=== PATIENT | male | born 1985 | race Caucasian/White ===

== ENCOUNTER 2018-10-25 19:34 | Day surgery (SDC) | payer MEDICAID ==
[~2018-10-25] VITALS: Ht 185.4 cm; Wt 99.8 kg
[~2018-10-25 19:34] MED LIST: CLIN150C17 PO
[2018-10-25] MEDS ORDERED: LACTATED RINGERS 1,000 ML IV ONE (19:39)
[2018-10-25] MEDS ORDERED: CEFEPIME INJECTION 2,000 MG in WATER (STERILE) FOR INJECTION 20 ML IV ONE (19:45)
[2018-10-25 19:52] LABS: BASOPHILS # (AUTO) 0.1 10^3/uL (0.0-0.1); BASOPHILS % (AUTO) 0 % (0-10); EOSINOPHILS # (AUTO) 0.3 10^3/uL (0.0-0.3); EOSINOPHILS % (AUTO) 2 % (0-10); HEMATOCRIT 43 % (40-54); HEMOGLOBIN 15.1 G/DL (13.3-17.7); LYMPHOCYTES # (AUTO) 2.8 X 10^3 (1.0-4.0); LYMPHOCYTES % (AUTO) 18 % (12-44); MEAN CORPUSCULAR HEMOGLOBIN 32 PG (25-34); MEAN CORPUSCULAR HGB CONC 35 G/DL (32-36); MEAN CORPUSCULAR VOLUME 91 FL (80-99); MEAN PLATELET VOLUME 9.7 FL (7.4-10.4); MONOCYTES # (AUTO) 1.2 X 10^3 (0.0-1.0); MONOCYTES % (AUTO) 8 % (0-12); NEUTROPHILS # (AUTO) 11.8 X 10^3 (1.8-7.8); NEUTROPHILS % (AUTO) 73 % (42-75); PLATELET COUNT 306 10^3/uL (130-400); RED CELL DISTRIBUTION WIDTH 12.3 % (10.0-14.5); WHITE BLOOD COUNT 16.2 10^3/uL (4.3-11.0)
--- NOTE | 2018-10-25 19:54 | ED EENT ---
History of Present Illness General Chief Complaint: Dental Problems/Pain Stated Complaint: DENTAL PAIN Source: patient, EMS History of Present Illness Date Seen by Provider: Oct 25, 2018 Time Seen by Provider: 19:31 Initial Comments PT ARRIVES VIA [facility] FROM HOME PT C/O DENTAL ABSCESS ON BOTH SIDES FOR 4 DAYS--RIGHT > LEFT HAS CHRONIC DENTAL CARIES/DENTAL ISSUES, BUT DOES NOT HAVE A DENTIST--PT IS [facility] PT, BUT DOES NOT GO TO DENTAL CLINIC THERE PT HAS HAD FEVER UP TO 104.3 TODAY AT NOON PT STATES HE IS ALLERGIC TO IBUPROFEN AND ASPIRIN, SO HE CAN ONLY TAKE TYLENOL--STATES HE HAS TAKEN #110 ES TYLENOL SINCE YESTERDAY ( COMES IN WITH A BOTTLE OF #100 AND #24--ONLY 14 TABLETS LEFT, AND PT STATES HE BOUGHT BOTH BOTTLES YESTERDAY ADAMANT THAT HE HAS NOT TAKEN ANYTHING ELSE FOR PAIN PT IS ADAMANT THAT HE HAS "NEVER USED DRUGS" PT WAS SEEN AT [facility] YESTERDAY FOR THIS PROBLEM AND WAS GIVEN CLINDAMYCIN RX--300 MG TID--HAS TAKEN LAST PM AND THIS AM STATES HE IS "NOT BETTER" SO CALLED EMS WHO BROUGHT HIM HERE PT C/O NAUSEA FOR EMS, AND WAS GIVEN 4 MG ZOFRAN ENROUTE. PT STATES NAUSEA IS BETTER. PCP: [facility] Allergies and Home Medications Allergies Coded Allergies: NSAIDS (Non-Steroidal Anti-Inflamma (Verified Allergy, Severe, ANAPHYLAXIS, 04/17/16) amoxicillin (Verified Allergy, Mild, RASH, 04/17/16) Uncoded Allergies: IV DYE (Allergy, Unknown, 10/25/18) Home Medications Clindamycin HCl 150 Mg Capsule, 450 MG PO TID Prescribed by: BRIAN BLANCA on 04/17/16 0812 Patient Home Medication List Home Medication List Reviewed: Yes Review of Systems Review of Systems Constitutional: see HPI, fever Eyes: No Symptoms Reported Ears: No Symptoms Reported Nose: no symptoms reported Mouth: see HPI, pain, swelling Throat: no symptoms reported Respiratory: no symptoms reported Cardiovascular: no symptoms reported Gastrointestinal: see HPI, nausea Musculoskeletal: no symptoms reported Skin: no symptoms reported Neurological: No Symptoms Reported Hematologic/Lymphatic: No Symptoms Reported Immunological/Allergic: no symptoms reported Past Xsksans-Tudyjm-Cdmntd Hx Patient Social History Alcohol Use: Occasionally Uses Recreational Drug Use: Yes (THC WHEN YOUNGER) Smoking Status: Current Everyday Smoker (2 PPD) Type Used: Cigarettes (2 PPD) Recent Foreign Travel: No Contact w/Someone Who Travel: No Recent Hopitalizations: No Seasonal Allergies Seasonal Allergies: No Past Medical History Surgeries: No Respiratory: No Cardiac: No Neurological: No Reproductive Disorders: No Genitourinary: No Gastrointestinal: No Musculoskeletal: No Endocrine: No HEENT: Yes (EXTENSIVE DENTAL CARIES/CHRONIC DENTAL PAIN ) Cancer: No Psychosocial: Yes Depression Integumentary: No Blood Disorders: No Physical Exam Vital Signs Vital Signs - First Documented 10/25/18 19:34 Temp 97.9 Pulse 86 Resp 16 B/P (MAP) 141/85 (103) Pulse Ox 96 O2 Delivery Room Air Height, Weight, BMI Height: 6'1" Weight: 200lbs. oz. 90.253113ak; BMI Method:Stated General Appearance: WD/WN, no apparent distress Eyes: bilateral eye normal inspection, bilateral eye PERRL, bilateral eye EOMI Ears: bilateral ear TM normal Nose: normal inspection Mouth/Throat: dental tenderness; No excessive drooling; mandibular swelling (NO AREAS OF FLUCTUANCE); No maxillary swelling; trismus, other (MODERATE SWELLING TO RIGHT MANDIBLE AREA, EXTENSIVE DIFFUSE DENTAL CARIES WITH MANY TEETH DECAYED DOWN TO GUMS AND EXTENSIVE DECAY STARTING A GUM LINE. DIFFUSE GINGIVAL INFLAMMATION AND ERYTHEMA--LEFT > RIGHT LOWER GUMS. DOES HAVE MILDER GINGIVAL INFLAMMATION TO UPPER GUMS. ) Neck: tender lateral (TENDERNESS OVER ANTERIOR CERVICAL LYMPH NODE AREA, BUT VERY MINIMALLY SWOLLEN NODES ON RIGHT SUBMANDIBULAR AREA. 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, no motor/sensory deficits, alert, normal mood/affect, oriented x 3 Skin: normal color, warm/dry, tattoos/piercings (TATTOOS) Progress/Results/Core Measures Results/Orders Lab Results Laboratory Tests Test 10/25/18 19:40 10/25/18 20:00 Range/Units White Blood Count 16.2 H 4.3-11.0 10^3/uL Red Blood Count 4.74 4.35-5.85 10^6/uL Hemoglobin 15.1 13.3-17.7 G/DL Hematocrit 43 40-54 % Mean Corpuscular Volume 91 80-99 FL Mean Corpuscular Hemoglobin 32 25-34 PG Mean Corpuscular Hemoglobin Concent 35 32-36 G/DL Red Cell Distribution Width 12.3 10.0-14.5 % Platelet Count 306 130-400 10^3/uL Mean Platelet Volume 9.7 7.4-10.4 FL Neutrophils (%) (Auto) 73 42-75 % Lymphocytes (%) (Auto) 18 12-44 % Monocytes (%) (Auto) 8 0-12 % Eosinophils (%) (Auto) 2 0-10 % Basophils (%) (Auto) 0 0-10 % Neutrophils # (Auto) 11.8 H 1.8-7.8 X 10^3 Lymphocytes # (Auto) 2.8 1.0-4.0 X 10^3 Monocytes # (Auto) 1.2 H 0.0-1.0 X 10^3 Eosinophils # (Auto) 0.3 0.0-0.3 10^3/uL Basophils # (Auto) 0.1 0.0-0.1 10^3/uL Neutrophils % (Manual) 78 % Lymphocytes % (Manual) 17 % Monocytes % (Manual) 3 % Eosinophils % (Manual) 2 % Basophils % (Manual) 0 % Band Neutrophils 0 % Blood Morphology Comment NORMAL Erythrocyte Sedimentation Rate 29 H 0-15 MM/HR Prothrombin Time 14.1 12.2-14.7 SEC INR Comment 1.1 0.8-1.4 Activated Partial Thromboplast Time 29 24-35 SEC Sodium Level 137 135-145 MMOL/L Potassium Level 3.6 3.6-5.0 MMOL/L Chloride Level 104 98-107 MMOL/L Carbon Dioxide Level 22 21-32 MMOL/L Anion Gap 11 5-14 MMOL/L Blood Urea Nitrogen 6 L 7-18 MG/DL Creatinine 0.81 0.60-1.30 MG/DL Estimat Glomerular Filtration Rate > 60 BUN/Creatinine Ratio 7 Glucose Level 137 H 70-105 MG/DL Lactic Acid Level 0.91 0.50-2.00 MMOL/L Calcium Level 9.4 8.5-10.1 MG/DL Corrected Calcium 9.2 8.5-10.1 MG/DL Magnesium Level 2.2 1.8-2.4 MG/DL Total Bilirubin 0.3 0.1-1.0 MG/DL Aspartate Amino Transf (AST/SGOT) 21 5-34 U/L Alanine Aminotransferase (ALT/SGPT) 26 0-55 U/L Alkaline Phosphatase 76 40-136 U/L C-Reactive Protein High Sensitivity 3.14 H 0.00-0.50 MG/DL Total Protein 7.5 6.4-8.2 GM/DL Albumin 4.3 3.2-4.5 GM/DL Amylase Level 44 25-125 U/L Acetaminophen Level < 10 L 10-30 UG/ML Serum Alcohol < 10 <10 MG/DL Urine Color YELLOW Urine Clarity CLEAR Urine pH 7 5-9 Urine Specific Franklin 1.010 L 1.016-1.022 Urine Protein NEGATIVE NEGATIVE Urine Glucose (UA) NEGATIVE NEGATIVE Urine Ketones NEGATIVE NEGATIVE Urine Nitrite NEGATIVE NEGATIVE Urine Bilirubin NEGATIVE NEGATIVE Urine Urobilinogen NORMAL NORMAL MG/DL Urine Leukocyte Esterase NEGATIVE NEGATIVE Urine RBC (Auto) 1+ H NEGATIVE Urine RBC RARE /HPF Urine WBC NONE /HPF Urine Squamous Epithelial Cells RARE /HPF Urine Crystals NONE /LPF Urine Bacteria NEGATIVE /HPF Urine Casts NONE /LPF Urine Mucus NEGATIVE /LPF Urine Culture Indicated NO Urine Opiates Screen POSITIVE H NEGATIVE Urine Oxycodone Screen NEGATIVE NEGATIVE Urine Methadone Screen NEGATIVE NEGATIVE Urine Propoxyphene Screen NEGATIVE NEGATIVE Urine Barbiturates Screen NEGATIVE NEGATIVE Ur Tricyclic Antidepressants Screen NEGATIVE NEGATIVE Urine Phencyclidine Screen NEGATIVE NEGATIVE Urine Amphetamines Screen NEGATIVE NEGATIVE Urine Methamphetamines Screen NEGATIVE NEGATIVE Urine Benzodiazepines Screen NEGATIVE NEGATIVE Urine Cocaine Screen NEGATIVE NEGATIVE Urine Cannabinoids Screen NEGATIVE NEGATIVE My Orders Orders - TANG DIAMOND DO Ed Iv/Invasive Line Start (10/25/18 19:39) Ekg Tracing (10/25/18 19:39) Monitor-Rhythm Ecg Trace Only (10/25/18 19:39) I-Stat Bedside Testing (10/25/18 19:39) Acetaminophen (10/25/18 19:39) Alcohol (10/25/18 19:39) Amylase (10/25/18 19:39) Cbc With Automated Diff (10/25/18 19:39) Comprehensive Metabolic Panel (10/25/18 19:39) Hs C Reactive Protein (10/25/18 19:39) Drug Screen Stat (Urine) (10/25/18 19:39) Lactic Acid Analyzer (10/25/18 19:39) Magnesium (10/25/18 19:39) Protime With Inr (10/25/18 19:39) Partial Thromboplastin Time (10/25/18 19:39) Ua Culture If Indicated (10/25/18 19:39) Blood Culture (10/25/18 19:39) Erythrocyte Sedimentation Rate (10/25/18 19:39) Ed Iv/Invasive Line Start (10/25/18 19:39) Lactated Ringers (Lr 1000 Ml Iv Solution (10/25/18 19:39) Urine Culture (10/25/18 19:39) Chest 1 View, Ap/Pa Only (10/25/18 19:39) Ed Iv/Invasive Line Start (10/25/18 19:39) Ed Iv/Invasive Line Start (10/25/18 19:39) Vital Signs Adult Sepsis Patie Q15M (10/25/18 19:39) Remove Rings In Anticipation O (10/25/18 19:39) Cefepime Injection (Maxipime Injection) (10/25/18 19:45) Manual Differential (10/25/18 19:40) Ct Maxillofacial Wo (10/25/18 19:39) Vital Signs/I&O 10/25/18 19:34 Temp 97.9 Pulse 86 Resp 16 B/P (MAP) 141/85 (103) Pulse Ox 96 O2 Delivery Room Air Progress Progress Note : Progress Note PT REPORTS TO XRAY STAFF THAT HE IS ALLERGIC TO IV DYE--DID NOT REPORT THIS ALLERGY TO ER STAFF, EVEN AFTER ASKED SPECIFICALLY. 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 LU, ACCEPTS PT FOR ADMIT/OBSERVATION Impression Primary Impression: DENTAL CARIES WITH INFECTION Disposition: ADMITTED INPATIENT Condition: Stable Admissions Decision to Admit Reason: Admit from ER (General) Decision to Admit/Date: Oct 25, 2018 Time/Decision to Admit Time: 20:25 Departure-Patient Inst. Referrals: [facility] (PCP/Family) Primary Care Physician TANG DIAMOND DO Oct 25, 2018 19:54
[2018-10-25 20:03] LABS: INR 1.1 (0.8-1.4); PROTHROMBIN TIME PATIENT 14.1 SEC (12.2-14.7)
[2018-10-25 20:08] LABS: BAND NEUTROPHILS 0 %; BASOPHILS % (MANUAL) 0 %; EOSINOPHILS % (MANUAL) 2 %; LYMPHOCYTES % (MANUAL) 17 %; MONOCYTES % (MANUAL) 3 %; NEUTROPHILS % (MANUAL) 78 %; RBC MORPH NORMAL
--- NOTE | 2018-10-25 20:08 | Diagnostic Imaging Report ---
INDICATION: Fever. Time of exam: 8:01 PM No prior studies are available for comparison. The heart size is normal. The pulmonary vascularity is unremarkable. The lungs are clear. No infiltrate, effusion or pneumothorax is detected. Impression: No acute cardiopulmonary process is detected. Dictated by: Dictated on workstation # [id number]
[2018-10-25 20:10] LABS: ACETAMINOPHEN < 10 UG/ML (10-30); ALANINE AMINOTRANSFERASE 26 U/L (0-55); ALBUMIN 4.3 GM/DL (3.2-4.5); ALKALINE PHOSPHATASE 76 U/L (40-136); AMYLASE 44 U/L (25-125); BILIRUBIN,TOTAL 0.3 MG/DL (0.1-1.0); BUN/CREATININE RATIO 7; CALCIUM 9.4 MG/DL (8.5-10.1); CARBON DIOXIDE 22 MMOL/L (21-32); CHLORIDE 104 MMOL/L (98-107); CREATININE SERUM 0.81 MG/DL (0.60-1.30); ERYTHROCYTE SEDIMENTATION RATE 29 MM/HR (0-15); GFR ESTIMATED > 60; GLUCOSE 137 MG/DL (70-105); MAGNESIUM 2.2 MG/DL (1.8-2.4); POTASSIUM 3.6 MMOL/L (3.6-5.0); SODIUM 137 MMOL/L (135-145); TOTAL PROTEIN 7.5 GM/DL (6.4-8.2)
[2018-10-25 20:17] LABS: BILIRUBIN,URINE NEGATIVE (NEGATIVE); CLARITY,URINE CLEAR; COLOR,URINE YELLOW; GLUCOSE, URINE (UA) NEGATIVE (NEGATIVE); KETONES,URINE NEGATIVE (NEGATIVE); LEUKOCYTE ESTERASE ,URINE NEGATIVE (NEGATIVE); NITRITE,URINE NEGATIVE (NEGATIVE); PH,URINE 7 (5-9); PROTEIN,URINE NEGATIVE (NEGATIVE); UROBILINOGEN,URINE NORMAL (NORMAL)
--- NOTE | 2018-10-25 20:18 | Diagnostic Imaging Report ---
PROCEDURE: CT maxillofacial without contrast. TECHNIQUE: Multiple contiguous axial images were obtained through the facial bones without the use of intravenous contrast. Auto Exposure Controls were utilized during the CT exam to meet ALARA standards for radiation dose reduction. INDICATION: Right jaw swelling and fever. FINDINGS: The study is limited without IV contrast. The patient could not receive IV contrast due to iodine allergy. The visualized intracranial structures are unremarkable. The globes and orbits are unremarkable. Visualized maxillary sinuses as well as ethmoid air cells, sphenoid sinus and frontal sinus are clear. Mastoids are well aerated. There is mild edema in the subcutaneous tissues of the right face suggestive of mild facial cellulitis. There is mildly enlarged submandibular lymph nodes on right side as well anterior to the right submandibular gland. The parotid glands are symmetric bilaterally. No fluid collection is seen. IMPRESSION: Findings suggestive of right facial cellulitis with some associated submandibular reactive lymphadenopathy. No abscess is identified. Dictated by: Dictated on workstation # [id number]
[2018-10-25 20:23] LABS: BACTERIA,URINE NEGATIVE /HPF; RBC,URINE RARE /HPF; SQUAMOUS EPITHELIAL CELL,UR RARE /HPF
[2018-10-25 20:30] LABS: AMPHETAMINE SCREEN, URINE NEGATIVE (NEGATIVE); BARBITURATE SCREEN URINE NEGATIVE (NEGATIVE); BENZODIAZEPINES SCREEN URINE NEGATIVE (NEGATIVE); CANNABINOID SCREEN, URINE NEGATIVE (NEGATIVE); COCAINE SCREEN URINE NEGATIVE (NEGATIVE); METHADONE STAT NEGATIVE (NEGATIVE); METHAMPHETAMINE SCREEN URINE S NEGATIVE (NEGATIVE); OPIATE SCREEN URINE POSITIVE (NEGATIVE); OXYCODONE STAT NEGATIVE (NEGATIVE); PROPOXYPHENE STAT NEGATIVE (NEGATIVE); TRICYCLIC ANTIDEPRESSANTS SCRE NEGATIVE (NEGATIVE)
[2018-10-25] MEDS ORDERED: methylPREDNISolone 125 MG (Solu-MEDROL) VIAL ONE ×2 (20:32→20:35)
[2018-10-25] MEDS ORDERED: methylPREDNISolone 125 MG (Solu-MEDROL) VIAL IVP ONE (20:45)
[2018-10-25 21:15] VITALS: BP 145/84
--- NOTE | 2018-10-25 21:15 | NUR ---
Pt arrived per w/c to room 413. NS infusing wide open. States right jaw pain 01/04. Requesting something to eat. Ambulatory to bathroom with steady gait.
[2018-10-25] MEDS ORDERED: ACETAMINOPHEN 500 MG TAB (TYLENOL) PO PRN (22:00)
[2018-10-25] MEDS: CLINDAMYCIN 600 MG/50 ML IVPB 50 ML IV SCH (23:02)
[2018-10-26] VITALS (7 sets, daily range): BP systolic 108–137; BP diastolic 69–87
[2018-10-26] MEDS ORDERED: HYDROcodone/APAP 5 MG/325 MG (LORTAB) TAB PO ONE (00:30)
--- NOTE | 2018-10-26 00:30 | NUR ---
Dr. Oropeza notified of pt request for stronger pain med. Hydrocodone x1 ordered and given. Ambulatory several times to snack machine and ambulating in hallway.
[2018-10-26] MEDS: CLINDAMYCIN 600 MG/50 ML IVPB 50 ML IV SCH ×3 (04:02→17:11)
[2018-10-26 06:17] LABS: BASOPHILS % (AUTO) 0 % (0-10); EOSINOPHILS % (AUTO) 0 % (0-10); HEMATOCRIT 42 % (40-54); HEMOGLOBIN 14.3 G/DL (13.3-17.7); LYMPHOCYTES # (AUTO) 1.2 X 10^3 (1.0-4.0); LYMPHOCYTES % (AUTO) 9 % (12-44); MEAN CORPUSCULAR HEMOGLOBIN 31 PG (25-34); MEAN CORPUSCULAR HGB CONC 34 G/DL (32-36); MEAN CORPUSCULAR VOLUME 91 FL (80-99); MEAN PLATELET VOLUME 9.9 FL (7.4-10.4); MONOCYTES # (AUTO) 0.4 X 10^3 (0.0-1.0); MONOCYTES % (AUTO) 3 % (0-12); NEUTROPHILS # (AUTO) 11.4 X 10^3 (1.8-7.8); NEUTROPHILS % (AUTO) 88 % (42-75); PLATELET COUNT 324 10^3/uL (130-400); RED CELL DISTRIBUTION WIDTH 12.3 % (10.0-14.5)
[2018-10-26 06:40] LABS: ALANINE AMINOTRANSFERASE 27 U/L (0-55); ALBUMIN 4.1 GM/DL (3.2-4.5); ALKALINE PHOSPHATASE 76 U/L (40-136); BILIRUBIN,TOTAL 0.3 MG/DL (0.1-1.0); BUN/CREATININE RATIO 6; CALCIUM 9.3 MG/DL (8.5-10.1); CARBON DIOXIDE 20 MMOL/L (21-32); CHLORIDE 108 MMOL/L (98-107); CREATININE SERUM 0.78 MG/DL (0.60-1.30); GFR ESTIMATED > 60; GLUCOSE 155 MG/DL (70-105); SODIUM 137 MMOL/L (135-145); TOTAL PROTEIN 6.9 GM/DL (6.4-8.2)
[2018-10-26] MEDS ORDERED: CLIN300C11 PO (08:21)
[2018-10-26] MEDS ORDERED: MULT-1102 PO (08:43)
[2018-10-26] MEDS ORDERED: SERT50TA9 PO (08:51)
[2018-10-26] MEDS ORDERED: ACET-93 PO (09:50)
--- NOTE | 2018-10-26 09:50 | NUR ---
SPOKE WITH PATIENT ABOUT HOME MEDS AND REVIEWED THE EXTERNAL MED HISTORY. 07-30-18 SERTRALINE 50 MG -1 TAB QHS #30/30DS (SAYS HE DOES NOT TAKE IT ALL THE TIME) OTC MEDICATIONS: MENS MULTIVITAMIN 1 DAILY TYLENOL 500MG- PATIENT STATES HE TAKES 8-9 EXTRA STRENGTH TYLENOL EVERY 3 HOURS.
--- NOTE | 2018-10-26 11:01 | History & Physical-Hospitalist ---
History of Present Illness HPI/Chief Complaint Chief Complaint: Tooth abscess HPI: This is a 32yoWM pt of [facility] that took one dose of oral antibiotic and presented to the ER with severe tooth abscess and facial cellulitis. Pt was placed on Clindamycin empirically and once the extraction prior to the first available dental [facility] 11[facility]11[facility]. Pt will be provided supportive care I will reach out to Dr. Bennett to see if extraction can be done and will continue pain medication until that time. Source: patient Exam Limitations: no limitations Date Seen 10/26/18 Time Seen by a Provider: 10:00 Attending Physician Daniella [facility]za [facility] Date of Admission Oct 25, 2018 at 20:24 Home Medications & Allergies Home Medications Reviewed patient Home Medication Reconciliation performed by pharmacy medication reconciliations dairy laboratory technician and/or nursing. Patients Allergies have been reviewed. Allergies Allergies Coded Allergies NSAIDS (Non-Steroidal Anti-Inflamma (Verified Allergy, Severe, ANAPHYLAXIS, 04/17/16) Uncoded Allergies PCN ( Allergy, Severe, 10/26/18) IV DYE ( Allergy, Unknown, 10/25/18) Past Fvirler-Irmguh-Rthvkj Hx Past Med/Social Hx: Reviewed Nursing Past Med/Soc Hx, Reviewed and Corrections made Patient Social History Marrital Status: single Employed/Student: unemployed Alcohol Use: Occasionally Uses Number of Drinks Today: 0 Recreational Drug Use: Yes (THC WHEN YOUNGER) Smoking Status: Current Everyday Smoker (2 PPD) Type Used: Cigarettes (2 PPD) 2nd Hand Smoke Exposure: Yes Recent Foreign Travel: No Contact w/other who traveled: No Recent Hopitalizations: No Recent Infectious Disease Expo: No Immunizations Up To Date Date of Pneumonia Vaccine: Feb 23, 2018 Seasonal Allergies Seasonal Allergies: No Past Medical History Reproductive: No Psychosocial: Depression History of Blood Disorders: No Family History Cardiovascular disease 19 MOTHER Diabetes mellitus 19 MOTHER Hypertension 19 MOTHER Review of Systems Constitutional: see HPI, fever, malaise, weakness EENTM: mouth pain Respiratory: no symptoms reported Cardiovascular: no symptoms reported Gastrointestinal: no symptoms reported Genitourinary: no symptoms reported Musculoskeletal: no symptoms reported Skin: no symptoms reported Psychiatric/Neurological: No Symptoms Reported All Other Systems Reviewed Negative Unless Noted: Yes Physical Exam Physical Exam Vital Signs Vital Signs - First Documented 10/25/18 19:34 Temp 97.9 Pulse 86 Resp 16 B/P (MAP) 141/85 (103) Pulse Ox 96 O2 Delivery Room Air Capillary Refill : Less Than 3 SecondsLess Than 3 Seconds Height, Weight, BMI Height: 6'1.00" Weight: 220lbs. 0.0oz. 99.446530wm; 29.0 BMI Method:Stated General Appearance: No Apparent Distress, WD/WN Eyes: Right Eye Normal Inspection, Right Eye PERRL HEENT: PERRL/EOMI, Moist Mucous Membranes, Other (right lower jaw with erythema and edema) Neck: Full Range of Motion, Normal Inspection, Non Tender Respiratory: Chest Non Tender, Lungs Clear, Normal Breath Sounds, No Accessory Muscle Use, No Respiratory Distress Cardiovascular: Regular Rate, Rhythm, No Edema, No Gallop, No JVD, No Murmur, Normal Peripheral Pulses Gastrointestinal: Normal Bowel Sounds, No Organomegaly, No Pulsatile Mass, Non Tender, Soft Back: Normal Inspection, No CVA Tenderness, No Vertebral Tenderness Extremity: Normal Capillary Refill, Normal Inspection, Normal Range of Motion, Non Tender, No Calf Tenderness, No Pedal Edema Neurologic/Psychiatric: Alert, Oriented x3, No Motor/Sensory Deficits, Normal Mood/Affect Skin: Normal Color, Warm/Dry Lymphatic: No Adenopathy Results Results/Procedures Labs Laboratory Tests 10/25/18 19:40 10/26/18 05:35 Patient resulted labs reviewed. Assessment/Plan Admission Diagnosis Assessment: Dental abscess failed po abx Smoker Plan: Consult Dr Bennett IV abx Pain control Admission Status: Observation Diagnosis/Problems Diagnosis/Problems (1) Dental Caries with infection Status: Acute (2) Smoker Status: Chronic (3) Pain due to dental caries Status: Acute Clinical Quality Measures DVT/VTE Risk/Contraindication: Risk Factor Score Per Nursin RFS Level Per Nursing on Admit: 1=Low/No VTE PPX DANIEL MOJICA DO Oct 26, 2018 11:01
[2018-10-26] MEDS ORDERED: ceFAZolin 2 GM/50 ML NS 50 ML IV NR (17:00)
[2018-10-26] MEDS: HYDROcodone/APAP 5 MG/325 MG (LORTAB) TAB PO PRN ×2 (17:37→21:36)
--- NOTE | 2018-10-26 19:09 | Diagnostic Imaging Report ---
INDICATION: Right tooth abscess. Time of exam 6:46 PM Panorex exam was performed. No suspicious periapical lucency is seen. There appear to be dental caries present involving right-sided posterior maxillary teeth. Large caries involving a left sided pre-molar mandibular tooth is noted. Mandible itself is intact. IMPRESSION: Multiple dental caries. No periapical abscess is seen. Dictated by: Dictated on workstation # [id number]
[2018-10-27] VITALS (11 sets, daily range): BP systolic 111–149; BP diastolic 59–82
[2018-10-27] MEDS: ceFAZolin INJECTION 1,000 MG in WATER (STERILE) FOR INJECTION 10 ML IV SCH ×2 (01:02→08:49)
[2018-10-27] MEDS: HYDROcodone/APAP 5 MG/325 MG (LORTAB) TAB PO PRN (01:36)
[2018-10-27] MEDS ORDERED: LIDOCAINE/EPI 2% 1:100,00 (XYLOCAINE) 20 ML VIAL ONE (10:39)
[2018-10-27] MEDS ORDERED: NEO/POLY/BAC (NEOSPORIN) OINT 15 GM TUBE ONE (10:40)
[2018-10-27] MEDS ORDERED: DEXAMETHASONE 10 MG/ML (DECADRON) 1 ML VIAL ONE (10:42)
[2018-10-27] MEDS ORDERED: ONDANSETRON 4 MG/2 ML (SDV) Z0FRAN ONE (10:42)
[2018-10-27] MEDS ORDERED: LIDOCAINE PF 2% 5 ML (XYLOCAINE) VIAL ONE (10:42)
[2018-10-27] MEDS ORDERED: proPOfol 200 MG/20 ML (DIPRIVAN) VIAL IV ONE (10:42)
[2018-10-27] MEDS ORDERED: SUCCINYLCHOLINE INJ 100 MG/5 ML SYR ONE (10:42)
[2018-10-27] MEDS ORDERED: MIDAZOLAM 2 MG/2 ML (VERSED) VIAL ONE (10:43)
[2018-10-27] MEDS ORDERED: fentaNYL INJECTION 100 MCG/2 ML AMP ONE (10:43)
--- NOTE | 2018-10-27 11:37 | Discharge Summary ---
Diagnosis/Chief Complaint Date of Admission Oct 25, 2018 at 20:24 Date of Discharge Discharge Date: Oct 27, 2018 Admission Diagnosis Assessment: Dental abscess failed po abx Smoker Plan: Consult Dr Bennett IV abx Pain control Discharge Diagnosis (1) Dental Caries with infection Status: Acute (2) Smoker Status: Chronic (3) Pain due to dental caries Status: Acute Discharge Summary Discharge Physical Exam Allergies: Coded Allergies: NSAIDS (Non-Steroidal Anti-Inflamma (Verified Allergy, Severe, A NAPHYLAXIS, 04/17/16) Uncoded Allergies: PCN (Allergy, Severe, 10/26/18) IV DYE (Allergy, Unknown, 10/25/18) Vitals & I&Os Vital Signs Date Time Temp Pulse Resp B/P (MAP) Pulse Ox O2 Delivery O2 Flow Rate FiO2 10/27/18 16:47 90 20 122/73 97 Room Air 10.00 10/27/18 16:00 97.6 General Appearance: Other (patient outside smoking unable to assess) Hospital Course Was the Problem List Reviewed?: Yes Hospital course: Patient had a brief hospital course after he was admitted for dental abscess Dr. Bennett performed incision and drainage of submandibular abscess with teeth extractions and was able to go back on his oral clindamycin antibiotic he had as an outpatient when he only took 1 pill before presenting to the ER. He will be seen in close follow-up with [facility]. Labs (last 24 hrs) Microbiology 10/25/18 Blood Culture - Preliminary, Resulted No growth 10/25/18 Urine Culture - Final, Complete NO GROWTH 10/27/18 Gram Stain, Resulted Pending 10/27/18 Anaerobic Culture, Resulted Pending 10/27/18 Surgical Culture - Preliminary, Resulted Patient resulted labs reviewed. Pending Labs Microbiology Date/Time Source Procedure Growth Status 10/27/18 13:48 Abscess Mandible Gram Stain Pending Resulted 10/27/18 13:48 Abscess Mandible Anaerobic Culture Pending Resulted 10/27/18 13:48 Abscess Mandible Surgical Culture - Preliminary Resulted Discussion & Recommendations Discharge Planning: <30 minutes discharge planning Discharge Home Medications: Active Scripts Active Reported Acetaminophen 500 Mg Tablet 500-1,000 Mg PO Q6H PRN patient says he takes 8-9 tabs every 3 hours Sertraline HCl 50 Mg Tablet 50 Mg PO HS last filled 07-30-2018 #30/30ds Men's Multivitamin Tablet (Multivit-Min/Folic/Vit K/Lycop) 1 Each Tablet 1 Tab PO DAILY Clindamycin HCl 300 Mg Capsule 300 Mg PO TID picked up a 10 day supply on 10-23-2018 Instructions to patient/family Please see electronic discharge instructions given to patient. Clinical Quality Measures DVT/VTE Risk/Contraindication: Risk Factor Score Per Nursin RFS Level Per Nursing on Admit: 1=Low/No VTE PPX DANIEL MOJICA DO Oct 27, 2018 11:37
[2018-10-27] MEDS ORDERED: PHENYLEPHRINE 0.5% NASAL SPR (NEO-SYNEPHRINE) REG ONE (13:10)
--- NOTE | 2018-10-27 13:17 | Progress Note-Pre Operative ---
Pre-Operative Progress Note H&P Reviewed The H&P was reviewed, patient examined and no changes noted. Date Seen by Provider: Oct 27, 2018 Time Seen by Provider: 12:30 Date H&P Reviewed: Oct 27, 2018 Time H&P Reviewed: 12:30 Pre-Operative Diagnosis: right submandibular abcess grossly carious teeth LORNA DOBBS DDS Oct 27, 2018 13:17
[2018-10-27] MEDS ORDERED: HYDROcodone/APAP 7.5MG-325 MG/15 ML (LORTAB) UDC PO PRN (13:30)
[2018-10-27] MEDS ORDERED: DEXAMETHASONE 4 MG/ML SDV (DECADRON) IV SCH (13:30)
[2018-10-27] MEDS ORDERED: SEVOFLURANE (ULTANE) 15 ML INHAL SOLN ONE (13:55)
[2018-10-27] MEDS ORDERED: HYDROmorphone 2 MG/ML VIAL (DILAUDID) ONE (13:59)
[2018-10-27] MEDS ORDERED: ROPIVACAINE 5MG/ML 30ML VIAL ONE (13:59)
[2018-10-27] MEDS ORDERED: HYDROmorphone 2 MG/ML VIAL (DILAUDID) IV ONE (14:30)
[2018-10-27] MEDS ORDERED: ONDANSETRON 4 MG/2 ML (SDV) Z0FRAN IVP PRN (14:30)
[2018-10-27] MEDS ORDERED: ceFAZolin INJECTION 1,000 MG in WATER (STERILE) FOR INJECTION 10 ML IV SCH (16:00)
--- NOTE | 2018-10-27 16:28 | NUR ---
received patient from surgery , bedside report received from Joy RN, patient awake alert, vitals b/p 122/73, pulse 90, o2 97% room air, resp 20, rating pain at 5, requesting to go home Dr. Bennett notified recommends for patient to stay, patient informed insisted going home, then insisted walking to [facility], discharge instruction given and f/u appointment with Dr. Bennett given to patient, home meds returned to patient(antibiotic and Tylenol) , tonight antibiotic and decadron administered before discharge
--- NOTE | 2018-10-28 12:35 | Anesthesia-General Post-Op ---
General Patient Condition Mental Status/LOC: Same as Preop Cardiovascular: Satisfactory Nausea/Vomiting: Absent Respiratory: Satisfactory Pain: Controlled Complications: Absent Post Op Complications Complications None Follow Up Care/Instructions Patient Instructions None needed. Anesthesia/Patient Condition Patient Condition Patient is doing well, no complaints, stable vital signs, no apparent adverse anesthesia problems. No complications reported per nursing. DARREL AVILA CRNA Oct 28, 2018 12:35
--- NOTE | 2018-11-18 10:15 | OPERATIVE REPORT ---
DATE OF SERVICE: 10/27/2018 SERVICE: crm marketing specialist. PREOPERATIVE DIAGNOSIS: Left submandibular abscess. POSTOPERATIVE DIAGNOSIS: Left submandibular abscess. SURGEON: Lorna Dobbs DDS POLICE MAGISTRATE: . ANESTHESIA: General endotracheal. COMPLICATIONS: There were no complications. ESTIMATED BLOOD LOSS: Minimal. FLUIDS: 800 mL of crystalloid. Instrument, needle and sponge count were correct x2. HISTORY OF PRESENT ILLNESS AND INDICATION FOR PROCEDURE: The patient is a 32-year-old essentially healthy white male, who presents to the ER and was admitted by the ER physician and placed on the floor with ordered IV antibiotics. He has a right submandibular abscess associated with the lower molar. After gaining a Panorex x-ray, it was determined tooth #30 was grossly carious and nonrestorable as well as tooth #31, which had deep cervical caries. After speaking extensively with the patient, he originally wanted all of his posterior teeth extracted, but I advised him due to his infection, we just want to treat the lower right side. After this, I explained to him that we have to remove these teeth and perform an incision and drainage either extraoral or intraoral depending on how he progressed. After this, he was allowed to ask questions and then he was scheduled for surgery at the earliest operating time. DESCRIPTION OF PROCEDURE: The patient was taken to the operating room and placed on operating room table. The appropriate monitors were placed. Anesthesia was induced via oral endotracheal intubation without difficulty. Once this was secured, the surgeon left the room and scrubbed, returned, donned sterile gowns and gloves and prepped and draped the patient in the usual standard sterile fashion. After pausing the local in the right mandibular block and right buccal vestibule, we were then able to elevate and remove tooth #30 without difficulty. Tooth #31 was then sectioned and removed without difficulty. There were no retained roots. The neurovascular bundle was not visualized. After this, I performed a right buccal incision in the vestibule and then dissected bluntly along the lateral border of the mandible. We had taken cultures from any purulent drainage. At this point, we then copiously irrigated with normal saline and placed gauze for hemostasis. We had placed a throat pack. This was removed prior to extubation. He was then extubated after breathing spontaneously. He was then transported to the recovery room and assessed to have stable vital signs, breathing spontaneously with pulse ox of 99%. Job ID: [id number] DocumentID: [id number] Dictated Date: 11/18/2018 08:17:15 Chief Service Dispatcher Date: 11/18/2018 10:15:03 Dictated By: LORNA DOBBS DDS
== END 2018-10-27 16:50 | disposition home or self-care (01) ==
LOC: EDUNIT# 19:34 → ER 19:35 → 4TH 20:24 → UNDOADMOB 20:24 → 4TH 21:15 → UNDOADMOB 21:15 → 4TH 21:15 → SDC 21:15 → UNDODISOB 10-27 16:50 → SDC 10-27 16:50
PROVIDERS: ATTEND Family Medicine
DX: K12.2 Cellulitis and abscess of mouth (principal); K04.7 Periapical abscess without sinus; K02.9 Dental caries, unspecified; F32.9 Major depressive disorder, single episode, unspecified; F17.210 Nicotine dependence, cigarettes, uncomplicated; Z79.899 Other long term (current) drug therapy
CPT/HCPCS: 36415; 70355; 70486; 71045; 80053; 80306; 80320; 80329; 81000; 82150; 83605; 83735; 85007; 85025; 85027; 85610; 85652; 85730; 86141; 87040; 87070; 87075; 87076; 87081; 87088; 87185; 87205; 93005; 93041; 96374; 96375; G0378